=== PATIENT | female | born 1950 | race Caucasian/White ===

== ENCOUNTER 2023-04-23 07:19 | Emergency (ER) | payer OTHER ==
[2023-04-23 07:34] VITALS: BP 126/88; PULSE 70; RESP 16; TEMP 97.9; BMI 27.0
[2023-04-23] MEDS ORDERED: DIPHTH,PERTUSS(ACELL),TET 0.5 ML DISP.SYRIN IM ONE ×2 (08:03→08:17)
== END 2023-04-23 10:00 | disposition home or self-care (01) ==
LOC: FER 07:19
PROC: 3E0234Z Introduction of Serum, Toxoid and Vaccine into Muscle, Percutaneous Approach (ICD-10-PCS; principal; 2023-04-23)
DX: S93.401A Sprain of unspecified ligament of right ankle, initial encounter (principal); M25.571 Pain in right ankle and joints of right foot; R11.0 Nausea; W54.1XXA Struck by dog, initial encounter; Y93.K1 Activity, walking an animal; Y92.009 Unspecified place in unspecified non-institutional (private) residence as the place of occurrence of the external cause
CPT/HCPCS: 73590-TC-RT-FY; 73610-TC-RT-FY; 73630-TC-RT-FY; 90471; 90715; 99283-25